=== PATIENT | female | born 1950 | race Caucasian/White ===

== ENCOUNTER 2017-10-04 11:48 | Inpatient (IN) | payer MEDICARE, OTHER ==
[~2017-10-04] VITALS: Ht 157.5 cm; Wt 106.2 kg
--- OUTSIDE RECORDS SUMMARY | 2017-10-04 11:50 | XMS REPORT | Clinical Summary ---
Author Author JENI [facility] Address Unknown Phone Unavailable Care Team Providers Care Telephone Mechanic Name Role Phone PCP Unavailable Allergies Active Allergy Reactions Severity Noted Date Comments Clindamycin Other (See Comments) 01/14/2014 Boss esophagus Latex Hives 10/15/2015 Current Medications Prescription Sig. Disp. Refills Start End Date Status Date glimepiride (AMARYL) 2 MG Take 1 mg by mouth daily Active tablet as needed . latanoprost (XALATAN) 1 drop nightly. Active 0.005 % ophthalmic solution fluticasone (FLONASE) 50 1 spray by Nasal route Active mcg/actuation nasal spray daily. omeprazole (PRILOSEC) 10 Take 20 mg by mouth daily Active MG capsule . allopurinol (ZYLOPRIM) Take 100 mg by mouth Active 100 MG tablet daily. bisacodyl (DULCOLAX) 5 mg Take 5 mg by mouth daily Active EC tablet as needed for Constipation. calcitriol (ROCALTROL) Take 0.25 mcg by mouth Active 0.5 MCG capsule daily . docusate sodium (COLACE) Take 300 mg by mouth Active 100 MG capsule every night as needed . guaiFENesin (MUCINEX) 600 Take 600 mg by mouth as Active mg 12 hr tablet needed . sucroferric oxyhydroxide Take by mouth 3 (three) Active 500 mg Chew times daily. cetirizine (ZYRTEC) 10 MG Take 10 mg by mouth Active tablet daily. cinacalcet (SENSIPAR) 30 Take 30 mg by mouth Active MG tablet daily. carvedilol (COREG) 25 MG Take 25 mg by mouth 2 11/23/19 Discontin tablet (two) times daily with 17 ued breakfast and dinner. sodium bicarbonate 325 MG Take 1,300 mg by mouth 2 11/23/19 Discontin tablet (two) times daily . 17 ued isosorbide mononitrate Take 1 tablet (60 mg 60 tablet 0 05/29/20 Discontin (IMDUR) 60 MG 24 hr total) by mouth 2 (two) 13 17 ued tablet times daily. loratadine (CLARITIN) 5 Take 5 mg by mouth daily. 11/23/19 Discontin mg chewable tablet 17 ued aspirin 81 MG EC tablet Take 1 tablet (81 mg 60 tablet 0 06/11/20 Discontin total) by mouth daily. 14 17 ued darbepoetin Inject 200 mcg 11/23/19 Discontin linh-polysorbate subcutaneously once. 17 ued (ARANESP) 200 mcg/0.4 mL Syrg injection senna (SENOKOT) 8.6 mg Take 3 tablets by mouth 11/23/19 Discontin tablet daily as needed . 17 ued desloratadine (CLARINEX) Take 5 mg by mouth daily 11/23/19 Discontin 5 mg tablet as needed. 17 ued CALCIUM CARB & Take 2,000 Units by mouth 11/23/19 Discontin CITRATE/VIT D3 (CALCIUM daily. 17 ued CARB AND CITRATE-VITD3 ORAL) NIFEdipine (ADALAT CC) 60 Take 1 tablet (60 mg 30 tablet 10/22/19 10/22/19 MG 24 hr tablet total) by mouth nightly. 16 17 NIFEdipine (ADALAT CC) 90 Take 1 tablet (90 mg 30 tablet 10/22/19 10/22/19 MG 24 hr tablet total) by mouth daily. 16 17 hydrALAZINE (APRESOLINE) Take 1 tablet (50 mg 90 tablet 10/22/19 10/22/19 50 MG tablet total) by mouth every 8 16 17 (eight) hours. losartan (COZAAR) 25 MG Take 1 tablet (25 mg 0 10/22/19 10/22/19 tablet total) by mouth 2 (two) 16 17 times daily. guanFACINE (TENEX) 1 MG Take 3 tablets (3 mg 90 tablet 11 04/21/20 04/21/20 tablet total) by mouth nightly. 16 17 bumetanide (BUMEX) 2 MG Take 1 tablet (2 mg 90 tablet 10/22/19 tablet total) by mouth every 8 16 17 (eight) hours. Active Problems Patient Care Coordination Note Dr. Christopher, PCP, Equinunkkostas Avilez, Ophath , Podiatry Dr. Messer, Derm Problem Noted Date Pre-transplant evaluation for kidney transplant 11/22/2016 Last Assessment & Plan: She is not an acceptable candidate for kidney transplant at this time. She was encouraged to monitor her intake and to exercise as tolerated. SOB (shortness of breath) 10/15/2015 Diabetes mellitus (HCC) 07/22/2014 Last Assessment & Plan: Continue follow up with primary care for blood glucose management. Obesity 07/22/2014 Last Assessment & Plan: She is s/p two gastric sleeve operations. She has gained weight since her previous clinic visit. Her current BMI is 45 with a goal weight of 233 lb and current weight of 175 lb. She was instructed to monitor her intake and to exercise as tolerated. Pulmonary edema 06/08/2014 ESRD (end stage renal disease) (HCC) 12/25/2013 Last Assessment & Plan: On PD since January 2016, makes about 50cc/24 hrs ESRD 2/2 HTN and DM Hyponatremia 05/23/2013 HTN (hypertension) 05/23/2013 Last Assessment & Plan: Blood pressure management per nephrology. 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);Pre-transplant evaluation for kidney transplant 07/17/2017 Evaluation Mabel Mahmood MD 07/17/2017 Telephone Transplant Phuong Chapa RN Kidney Transplant Pre-evaluation 06/21/2017 Telephone Transplant Amber Morgan Appointment 03/22/2017 Telephone Transplant Phuong Chapa RN 03/15/2017 Telephone Transplant Phuong Chapa RN Kidney Transplant Pre-evaluation 11/24/2016 Documentation Transplant Phuong Chapa RN 11/24/2016 Orders Only Transplant Phuong Chapa RN Pre-transplant evaluation for chronic kidney disease (Primary Dx) 11/22/2016 Office Visit Transplant Edel Moss MD 11/22/2016 Office Visit Transplant Edel Moss, ESRD (end stage renal MD disease) ([facility]) (Primary Peterson Chan Aba, Dx);Essential MD hypertension;Type 2 diabetes mellitus with complication, with long-term current use of insulin ([facility]);Pre-transplant evaluation for kidney transplant after 10/03/2016 Family History Medical History Relation Name Comments Diabetes Father Kidney disease Father On hemo initially and at was on PD. Bipolar disorder Mother Diabetes Mother Unremarkable Sister Unremarkable Son Unremarkable Son Relation Name Status Comments Father Mother Sister Alive Son Alive Son Alive Social History Tobacco Use Types Packs/Day Years Used Date Never Smoker Smokeless Tobacco: Never Used Alcohol Use Drinks/Week oz/Week Comments No Sex Assigned at Date Recorded Not on file Last Filed Vital Signs Vital Sign Reading Time Taken Blood Pressure 181/68 10/03/2017 10:38 AM CDT Pulse 66 10/03/2017 10:38 AM CDT Temperature 36 C (96.8 F) 10/03/2017 10:38 AM CDT Respiratory Rate 18 10/03/2017 10:38 AM CDT Oxygen Saturation 99% 07/17/2017 10:00 AM SENIOR BRANCH MANAGER Inhaled Oxygen - - Concentration Weight 105.8 kg (233 lb 4.8 oz) 10/03/2017 10:38 AM CDT Height 153 cm (5' 0.24") 10/03/2017 10:38 AM CDT Body Mass Index 45.21 10/03/2017 10:38 AM CDT Plan of Treatment Health Maintenance Due Date Last Done Comments INFLUENZA VACCINE 04/02/2018 Results Not on fileafter 10/03/2016
--- OUTSIDE RECORDS SUMMARY | 2017-10-04 11:50 | XMS REPORT | Clinical Summary ---
Author Author [facility] Organization [facility] Address Unknown Phone Unavailable Care Team Providers Care Strapper And Buffer Name Role Phone Adelina Christopher MD PCP Allergies Active Allergy Reactions Severity Noted Date Comments Clindamycin Other (See Comments) 12/31/2015 Boss esophagus Latex Hives 12/31/2015 Current Medications Prescription Sig. Disp. Refills Start End Date Status Date allopurinol (ZYLOPRIM) Take 100 mg by mouth Active 100 MG tablet daily. darbepoetin Inject 200 mcg under the Active linh-polysorbate skin once. (ARANESP, IN POLYSORBATE,) 200 mcg/0.4 mL syringe b complex vitamins (B Take 1 tablet by mouth Active COMPLETE) tablet daily. bisacodyl 5 mg tablet Take by mouth. Active BUMETanide (BUMEX) 2 MG Take 2 mg by mouth daily. Active tablet calcitriol (ROCALTROL) Take 0.5 mcg by mouth Active 0.5 MCG capsule daily. carvedilol (COREG) 25 MG Take 25 mg by mouth 2 Active tablet (two) times a day with meals. docusate sodium (COLACE) Take 100 mg by mouth 2 Active 100 MG capsule (two) times a day. fluticasone (FLONASE 1 spray into each nostril Active ALLERGY RELIEF) 50 daily. mcg/actuation nasal spray glimepiride (AMARYL) 1 MG Take 1 mg by mouth daily Active tablet before breakfast. hydrALAZINE (APRESOLINE) Take 50 mg by mouth 3 Active 50 MG tablet (three) times a day. isosorbide mononitrate Take 60 mg by mouth Active (IMDUR) 60 MG 24 hr daily. tablet losartan (COZAAR) 25 MG Take 25 mg by mouth Active tablet daily. NIFEdipine XL (NIFEDICAL Take 60 mg by mouth Active XL) 60 MG 24 hr tablet daily. pm NIFEdipine XL (PROCARDIA Take 90 mg by mouth Active XL) 90 MG 24 hr tablet daily. am senna (SENNA LAXATIVE) Take 1 tablet by mouth Active 8.6 mg tablet daily. simvastatin (ZOCOR) 10 MG Take 10 mg by mouth Active tablet nightly. sodium bicarbonate 648 MG Take 650 mg by mouth 4 Active tablet (four) times a day. guanFACINE (TENEX) 1 MG Take 1 mg by mouth Active tablet nightly. sucroferric oxyhydroxide Chew 1 tablet 3 (three) Active (VELPHORO) 500 mg times a day with meals. tablet,chewable cholecalciferol, vitamin Take 1,000 Units by mouth Active D3, (VITAMIN D3) 1,000 daily. unit capsule latanoprost (XALATAN) 1 drop nightly. Active 0.005 % ophthalmic solution cetirizine (ZyrTEC) 10 MG Take 10 mg by mouth Active tablet daily. Active Problems Not on file Encounters Date Type Specialty Care Team Description 12/30/2016 [facility] Radiology Jarek Christopher Jr., Visit for screening Encounter mammogram 12/30/2016 [facility] Access Jarek Christopher Jr., Visit for screening Orders mammogram (Primary Dx) after 10/03/2016 Social History Tobacco Use Types Packs/Day Years Used Date Never Smoker Smokeless Tobacco: Never Used Alcohol Use Drinks/Week oz/Week Comments No Sex Assigned at Date Recorded Not on file Last Filed Vital Signs Not on file Plan of Treatment Health Maintenance Due Date Last Done Comments COLONOSCOPY 1999 ZOSTER VACCINE 2009 PNEUMOCOCCAL 2014 POLYSACCHARIDE VACCINE AGE 65 AND OVER PNEUMOCOCCAL-13 2014 INFLUENZA VACCINE 01/31/2018 MAMMOGRAM 12/30/2018 12/30/2016, 12/22/2015, 12/08/2014, Additional history exists Implants Implanted Type Area Welder Plasma Arc Device Expiration Model / Identifier Date Serial / Lot Peritoneal Dialysis Catheter Catheter, Right: COVIDIEN 08/26/2020 [id number] Implanted: Qty: 1 on 12/31/2015 by Dialysis Abdomen, / Sidney Wasserman MD Middle / Quadrant/N [id number] on Specific Results * Mammo Breast Screen Tomosynthesis Bilateral (12/30/2016 1:20 PM) Specimen Performing Laboratory [facility] [id number] [place] [address] Narrative PROCEDURE: MAMMO BREAST SCREEN TOMOSYNTHESIS BILATERAL Computer-assisted detection was utilized inthe interpretation of this exam. COMPARISON: 2015, 2014, 2013, and 2012 TECHNIQUE: Bilateral digital screening mammogram was performed and interpreted using computer-assisted detection. HISTORY: Asymptomatic routine screening. Family History: Mother with breast cancer diagnosis at age 65. FINDINGS: BreastComposition: There are scattered areas of fibroglandular density ( category B). No suspicious mass , architectural distortion or suspicious microcalcifications are present. There has been no significant interval change since prior mammograms. IMPRESSION: No mammographic evidence of malignancy. Birads category 1.Negative. RECOMMENDATIONS:If the clinical breast examination is unchanged and normal , annual screening mammography is recommended per ACS and ACR guidelines. NOTE: This facility is a designated ACR [facility] ( [facility]) , meeting standards of accreditation in all modalities of breast imaging. This facility is accredited by The [employer] for Mammography. A negative x-ray report should not delay biopsy if a dominant or clinically suspicious mass is present. Not all cancers are identified by x-ray. [id number] after 10/03/2016 Insurance Payer Benefit Subscriber ID Type Phone Address Plan / Group MEDICARE MEDICARE xxxxxxxxxx Medicare [place], [place] PART A AND B AETNA AETNA xxxxxxxxxx HMO HMO,POS,EP O, MC/EC xxxxxxxxx
[2017-10-04] MEDS ORDERED: SODIUM CHLORIDE 0.9% 1000ML 1,000 ML IV STA (12:25)
[2017-10-04] MEDS ORDERED: ASPIRIN 81 MG CHEW TAB PO ONE ×2 (12:30→14:15)
[2017-10-04] MEDS ORDERED: SODIUM CHLORIDE 0.9% 1000ML 1,000 ML ONE (12:34)
[2017-10-04 12:37] LABS: BASOPHILS # (AUTO) 0.1 (0.0-0.1); BASOPHILS % 0.7 % (0.0-1.0); EOSINOPHILS # (AUTO) 0.3 (0.0-0.4); HEMATOCRIT 34.2 % (34.2-44.1); HEMOGLOBIN 10.8 g/dL (12.0-16.0); LYMPHOCYTES # (AUTO) 3.1 (1.0-3.2); MEAN CORPUSCULAR HEMOGLOBIN 30.6 pg (28-32); MEAN CORPUSCULAR HGB CONC 31.6 g/dL (31-35); MEAN CORPUSCULAR VOLUME 96.9 fL (81-99); MONOCYTES # (AUTO) 0.7 (0.2-0.8); MONOCYTES % 7.1 % (4.4-11.3); NEUTROPHILS # (AUTO) 5.7 (2.1-6.9); NEUTROPHILS % 57.9 % (38.7-80.0); PLATELET COUNT 251 x10e3/uL (140-360); RED BLOOD COUNT 3.53 x10e6/uL (3.6-5.1); RED CELL DISTRIBUTION WIDTH 13.7 % (11.7-14.4)
[2017-10-04] MEDS ORDERED: CALCITRIOL0.25 MCG PO (12:40)
[2017-10-04] MEDS ORDERED: SIMVASTATIN20 MG PO (12:40)
[2017-10-04] MEDS ORDERED: CETIRIZINE HCL10 MG PO (12:40)
[2017-10-04] MEDS ORDERED: LORATADINE10 MG PO (12:40)
[2017-10-04] MEDS ORDERED: BISACODYL5 MG PO (12:40)
[2017-10-04] MEDS ORDERED: LOSARTAN POTASS25 MG PO (12:40)
[2017-10-04] MEDS ORDERED: MUCINEX600 MG PO (12:40)
[2017-10-04] MEDS ORDERED: POTASSIUM CHLO20 ME1 PO (12:40)
[2017-10-04] MEDS ORDERED: VITAMIN D1000 UNI1 PO (12:40)
[2017-10-04] MEDS ORDERED: ALLOPURINOL100 MG PO (12:40)
[2017-10-04] MEDS ORDERED: OMEPRAZOLE40 MG PO (12:40)
[2017-10-04] MEDS ORDERED: SENSIPAR30 MG PO (12:40)
[2017-10-04] MEDS ORDERED: CALCIUM CARBON500 MG PO (12:40)
[2017-10-04] MEDS ORDERED: SIMETHICONE80 MG PEG (12:40)
[2017-10-04 12:44] LABS: INR 1.1; PARTIAL THROMBOPLASTIN TIME 28.8 seconds (23.8-35.5); PROTHROMBIN TIME 13.4 seconds (11.9-14.5)
--- NOTE | 2017-10-04 12:48 | Diagnostic Imaging Report ---
PROCEDURE:CHEST SINGLE (PORTABLE) TECHNIQUE:Portable AP chest INDICATION:Exhaustion COMPARISON:None. FINDINGS: Lungs are clear and well-inflated. No pleural effusions. Normal heart size, mediastinal contour, and pulmonary vasculature for technique. Intact skeleton. Right humerus ligamentous anchors. CONCLUSION: No acute abnormality. Dictated by: Greg Ramos M.D. on 10/04/2017 at 12:49 Electronically approved by: Greg Ramos M.D. on 10/04/2017 at 12:49
[2017-10-04] MEDS ORDERED: AMIODARONE HCL 100 ML IV ONE ×3 (12:50→13:09)
[2017-10-04 12:55] LABS: ALBUMIN 3.1 g/dL (3.5-5.0); ALBUMIN/GLOBULIN RATIO 0.9 (0.8-2.0); ANION GAP 15.9 mmol/L (8-16); CREATININE, SERUM 8.5 mg/dL (0.57-1.11); POTASSIUM 4.9 mmol/L (3.5-5.1)
[2017-10-04] MEDS ORDERED: AMIODARONE 900MG 500 ML IV ONE (12:56)
[2017-10-04] MEDS ORDERED: AMIODARONE HCL 150 MG/100 ML BAG IV ONE ×2 (13:00)
[2017-10-04] MEDS ORDERED: AMIODARONE HCL 150MG 200 ML IV ONE (13:00)
[2017-10-04] MEDS ORDERED: AMIODARONE HCL 900 MG in DEXTROSE 5% 500ML 500 ML IV ONE (13:00)
[2017-10-04 13:04] LABS: CREATINE KINASE MB 1.5 ng/mL (0-5.0)
[2017-10-04 13:05] LABS: MAGNESIUM 1.6 MG/DL (1.3-2.1); PHOSPHORUS 3.9 MG/DL (2.3-4.7)
[2017-10-04] MEDS ORDERED: AMIODARONE HCL 150MG 100 ML IV ONE (13:15)
[2017-10-04 13:27] LABS: THYROID STIMULATING HORMONE 4.367 uIU/mL (0.350-4.940)
[2017-10-04] MEDS ORDERED: SODIUM CHLORIDE FLUSH 10 ML SYR INJ PRN (14:15)
--- OUTSIDE RECORDS SUMMARY | 2017-10-04 15:36 | XMS REPORT | Clinical Summary ---
Author Author [facility] Organization [facility] Address Unknown Phone Unavailable Care Team Providers Care Metal Door Assembler Name Role Phone Adelina Christopher MD PCP [...] Date Type Specialty Care Team Description 12/30/2016 [facility] Radiology Jarek Christopher Jr., Visit for screening [...] Additional history exists Implants Implanted Type Area Spiritual Counselor Device Expiration Model / Identifier Date Serial / Lot Peritoneal Dialysis Catheter Catheter, Right: COVIDIEN 08/26/2020 [id number] Implanted: Qty: 1 on 12/31/2015 by Dialysis Abdomen, / Sidney Wasserman MD Middle / Quadrant/N [id number] on Specific Results * Mammo Breast Screen Tomosynthesis Bilateral (12/30/2016 1:20 PM) Specimen Performing Laboratory [facility] [address] [place] [address] Narrative PROCEDURE: MAMMO BREAST SCREEN TOMOSYNTHESIS BILATERAL [...] imaging. This facility is accredited by The [employer] for Mammography. A negative x-ray report should not delay biopsy if a dominant or clinically suspicious mass is present. Not all cancers are identified by x-ray. [id number] after 10/03/2016 Insurance Payer Benefit Subscriber ID Type Phone Address Plan / Group MEDICARE MEDICARE xxxxxxxxxx Medicare [place], [place] PART A AND B AETNA AETNA xxxxxxxxxx HMO HMO,POS,EP O, MC/EC xxxxxxxxx
--- OUTSIDE RECORDS SUMMARY | 2017-10-04 15:37 | XMS REPORT ---
Author Author [facility] Address Unknown Phone Unavailable Care Team Providers Care Open Source Developer Name Role Phone EMILIA GOODSON Unavailable Unavailable Problems This patient has no known problems. Allergies, Adverse Reactions, Alerts This patient has no known allergies or adverse reactions. Medications This patient has no known medications. Results Test Description Test Time Test Comments Text Results Atomic Results Result Comments CHEST SINGLE (PORTABLE) [place] [address] Patient Name: KIMBERLI ARCHIBALD MR #: [id number] : 1950 Age/Sex: 67/F Req #: [id number] Adm Physician: Ordered by: EMILIA GOODSON MD Report #: [id number] Location: ER Room/Bed: Procedure: [id number] DX/CHEST SINGLE (PORTABLE) Exam Date: 10/04/17 Exam Time: 1230 REPORT STATUS: Signed PROCEDURE: CHEST SINGLE (PORTABLE) TECHNIQUE: Portable AP chest INDICATION: Exhaustion COMPARISON: None. FINDINGS: Lungs are clear and well- inflated. No pleural effusions. Normal heart size, mediastinal contour, and pulmonary vasculature for technique. Intact skeleton. Right humerus ligamentous anchors. CONCLUSION: No acute abnormality. Dictated by: Maynor Ramos M.D. on 10/04/2017 at 12:49 Electronically approved by: Maynor Ramos M.D. on 10/04/2017 at 12:49 Dictated By: MAYNOR RAMOS MD 1249 Transcribed By: SALLIE on 10/04/17 1249 COPY TO: EMILIA GOODSON MD
--- OUTSIDE RECORDS SUMMARY | 2017-10-04 15:37 | XMS REPORT | Clinical Summary ---
Author Author JENI [facility] Address Unknown Phone Unavailable Care Team Providers Care Farm Crops Teacher Name Role Phone PCP Unavailable Allergies Active [...] Patient Care Coordination Note Dr. Christopher, PCP, Schuylerkostas Avilez, Ophath , Podiatry Dr. 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);Pre-transplant evaluation for kidney transplant [...] Moss, ESRD (end stage renal MD disease) ([facility]) (Primary Peterson Chan Aba, Dx);Essential MD hypertension;Type 2 diabetes mellitus with complication, with long-term current use of insulin ([facility]);Pre-transplant evaluation for kidney transplant after 10/03/2016 Family [...] CDT Oxygen Saturation 99% 07/17/2017 10:00 AM SLEEP MANAGER Inhaled Oxygen - - Concentration Weight 105.8 kg (233 lb 4.8 oz) 10/03/2017 10:38 AM CDT Height 153 cm (5' 0.24") 10/03/2017 10:38 AM CDT Body Mass Index 45.21 10/03/2017 10:38 AM CDT Plan of Treatment Health Maintenance Due Date Last Done Comments INFLUENZA VACCINE 04/02/2018 Results Not on fileafter 10/03/2016
[2017-10-04 16:35] LABS: CLARITY,URINE CLEAR (CLEAR); COLOR,URINE YELLOW (YELLOW); LEUKOCYTE ESTERASE ,URINE 1+ (NEGATIVE); NITRITE,URINE NEGATIVE (NEGATIVE); PROTEIN,URINE DIPSTICK 2+ (NEGATIVE)
[2017-10-04 16:36] LABS: BILIRUBIN,URINE NEGATIVE (NEGATIVE); KETONES,URINE NEGATIVE (NEGATIVE); URINE UROBILINOGEN 0.2 mg/dL (0.2 - 1)
[2017-10-04] MEDS ORDERED: METOPROLOL TARTRATE INJ 1 MG/ML VIAL IV NR (16:45)
[2017-10-04 16:48] LABS: BACTERIA,URINE FEW /HPF; EPITHELIAL CELLS,URINE MODERATE /LPF
[2017-10-04] MEDS ORDERED: APIXAB 2.5 MG TABLET PO SCH ×2 (17:00)
[2017-10-04] MEDS ORDERED: METOPROLOL TARTRATE 50 MG TAB PO STA (17:33)
[2017-10-04] MEDS: APIXABAN 5 MG TABLET PO SCH (17:55)
[2017-10-04] MEDS ORDERED: METOPROLOL TARTRATE 25 MG TAB PO SCH (18:00)
--- NOTE | 2017-10-04 19:35 | Consultation ---
DATE OF CONSULTATION: October 04, 2017 CARDIAC CONSULTATION Atrial fibrillation with fast ventricular response. HISTORY: This is a 67-year-old lady who is known with morbid obesity, diabetes mellitus of many years duration with severe end-organ damage and hypertension. She is noted to have long-standing history of renal insufficiency. She was started on peritoneal dialysis a year ago. She does her dialysis at home. Her activities are limited at her level of activity. She does have easy fatigability, shortness of breath on exertion. She does have frequent episodes where she cannot breathe well. For the last week or so, she is feeling weak. No energy. It was noted her heart rate is very fast and she is feeling dizzy and very ill. She came to the emergency room. She was in atrial fibrillation with rapid ventricular response. Patient was started on Cardizem intravenously. Her heart rate is 180. Cardiac consultation is obtained. I visited the patient who is still in atrial fibrillation on Cardizem drip. We gave her metoprolol orally. The patient apparently she was noted to be weak for 1 week. However, the documented fast heart was today on her blood pressure measurement where her heart rate was 170. She is feeling weak and "no energy". There is no chest pain. There is usual shortness of breath. There is usual "orthopnea". The patient does have sleep apnea on CPAP. There is no angina. There is easy fatigability. There is usual swelling of the lower extremities. There is no recent travel. There is no pleuritic chest pain. There is not any type of chest pain except shortness of breath. There is no cough. No hemoptysis. REVIEW OF SYSTEMS: Was extensive to all systems. Will be summarized for clarity. GENERAL: No fever. No chills. No weight loss. No weight gain. PULMONARY/CARDIAC: As per above. GI: Bloating and indigestion mainly after heavy meals. There is a history of severe chronic constipation. There is no hemiparesis. These is no melena. : She still makes some urine. MUSCULAR: Aches and pain in several joints. NEUROLOGICAL: No local deficits. Occasional tingling and numbness. No seizure activity. HEENT: Mild decreased vision. HEMATOLOGY: No bleeding or bruising. ENDOCRINE: The patient is diabetic of many years duration. SOCIAL HISTORY: She is a nonsmoker and non-alcohol drinker. She is . HOME MEDICATIONS 1. Allopurinol 100 mg a day. 2. Bisacodyl 10 mg a day. 3. Calcitriol 1 tablet a day. 4. Calcium carbonate. 5. Vitamins D3. 6. Sensipar. 7. Mucinex. 8. Sertraline. 9. Loratadine. 10. Losartan 25 mg a day. 11. Zocor 20 mEq a day. 12. Zocor 20 mg a day. 13. Prilosec 40 mg a day. ALLERGIES: NONE. PAST MEDICAL HISTORY 1. Sleep apnea. 2. Obesity. 3. Hypertension. 4. Diabetes mellitus with end-organ damage. 5. End-stage renal disease, on peritoneal dialysis. 6. times 2. 7. Appendectomy. 8. Weight loss surgery twice. 9. Shoulders surgery. 10. Insertion of peritoneal dialysis catheter. FAMILY HISTORY: Father at age 70. He was on hemodialysis. He was diabetic and he of a myocardial infarction. Mother at age of 77. She was hypertensive. One healthy sister and 2 healthy sons at age 42 and 41. PHYSICAL EXAMINATION GENERAL: Obese lady. VITALS: Height of 5 feet 3 inches, weight of 160 pounds, blood pressure 130/80, heart rate of 140 irregularly irregular with atrial fibrillation, respiratory rate of 18, temperature of 98 Fahrenheit. HEENT: Pupils are reactive. NECK: Short neck. Difficult to assess jugular venous pulsation. CHEST: Bilateral crackles and rales with decreased lung expansion. HEART: PMI deep and not palpable. There is an irregularly irregular rate of atrial fibrillation. There is tachycardia with ejection systolic murmur. ABDOMEN: Obese. PD dialysis catheter in place. EXTREMITIES: Mild peripheral edema. Decreased feet pulses. NEUROLOGIC: Able to move her extremities. LAB DATA: White blood cell count 9.8, hemoglobin of 10.8, hematocrit 34%, and platelet count of 251,000. Sodium 141, potassium of 4.9, BUN of 55, creatinine 8.5, glucose of 155. BNP of only 195. TSH of 4.4. Cardiac enzymes and troponin are normal. IMPRESSION AND PLAN 1. New onset atrial fibrillation with rapid ventricular response. 2. Diabetes mellitus with end-organ damage. 3. End-stage renal disease, on peritoneal dialysis. 4. Sleep apnea, on CPAP. 5. Obesity. 6. Hyperlipidemia. 7. Hypercholesterolemia. 8. History of gout. 9. Allergies and hay fever. 10. Obesity. 11. Very high probability of coronary artery disease. Cardiac berumen, my recommendation is to continue amiodarone. Will add beta migel. Patient already started on Eliquis for anticoagulation. Will follow the patient's progression with you. Will adjust medication as needed. Atrial fibrillation cause and treatment is discussed and explained to the patient and her . Their questions were answered. Care discussed with the staff and the patient's attending in the emergency room to try to manage her problems. Will follow the patient's progression with you. I would like to thank you for your kind referral. Job#: [id number] RENEE
[2017-10-04 20:39] VITALS: BP 131/50
[2017-10-04] MEDS ORDERED: AMARYL1 MG PO (20:56)
[2017-10-04 21:00] VITALS: BP 131/50
[2017-10-04 21:15] LABS: CREATINE KINASE MB 1.6 ng/mL (0-5.0)
[2017-10-04] MEDS: GUAIFENESIN 600 MG TAB PO SCH (22:00)
[2017-10-04] MEDS ORDERED: GLIMEPIRIDE 2 MG TAB PO PRN (22:00)
[2017-10-04] MEDS: POTASSIUM CHLORIDE 20 MEQ TAB CR PO SCH (23:10)
[2017-10-04] MEDS: OYST-CAL-D 500MG TABLET PO SCH (23:11)
[2017-10-04] MEDS: SIMVASTATIN 20 MG TAB PO SCH (23:11)
[2017-10-05] VITALS: BP 139/46
[2017-10-05 04:00] VITALS: BP 143/51
[2017-10-05 06:13] LABS: BASOPHILS # (AUTO) 0.1 (0.0-0.1); BASOPHILS % 0.6 % (0.0-1.0); EOSINOPHILS # (AUTO) 0.3 (0.0-0.4); EOSINOPHILS % 4.2 % (0.0-6.0); HEMATOCRIT 32.5 % (34.2-44.1); HEMOGLOBIN 10.3 g/dL (12.0-16.0); LYMPHOCYTES # (AUTO) 2.6 (1.0-3.2); LYMPHOCYTES % 32.5 % (18.0-39.1); MEAN CORPUSCULAR HEMOGLOBIN 31.1 pg (28-32); MEAN CORPUSCULAR HGB CONC 31.7 g/dL (31-35); MEAN CORPUSCULAR VOLUME 98.2 fL (81-99); MONOCYTES # (AUTO) 0.8 (0.2-0.8); MONOCYTES % 9.6 % (4.4-11.3); NEUTROPHILS # (AUTO) 4.3 (2.1-6.9); NEUTROPHILS % 52.7 % (38.7-80.0); PLATELET COUNT 232 x10e3/uL (140-360); RED BLOOD COUNT 3.31 x10e6/uL (3.6-5.1); RED CELL DISTRIBUTION WIDTH 13.3 % (11.7-14.4)
[2017-10-05 06:45] LABS: CREATINE KINASE MB 1.5 ng/mL (0-5.0)
[2017-10-05 07:04] LABS: ALBUMIN 2.7 g/dL (3.5-5.0); ALBUMIN/GLOBULIN RATIO 0.8 (0.8-2.0); ANION GAP 14.8 mmol/L (8-16); CALCIUM 8.9 mg/dL (8.4-10.2); CREATININE, SERUM 8.31 mg/dL (0.57-1.11); POTASSIUM 4.8 mmol/L (3.5-5.1)
[2017-10-05 07:39] LABS: CHOL/HDL RATIO 2.9 (3.0-3.6)
[2017-10-05 07:45] VITALS: BP 148/66
[2017-10-05] MEDS ORDERED: SIMETHICONE 80 MG CHEW PEG SCH (09:00)
[2017-10-05] MEDS ORDERED: NON-FORMULARY MEDICATION (Cetirizine Hcl 10 MG) PO SCH (09:00)
[2017-10-05] MEDS ORDERED: BISACODYL 5 MG TAB EC PO SCH (09:00)
[2017-10-05] MEDS ORDERED: METOPROLOL TARTRATE 25 MG TAB PO SCH (09:00)
[2017-10-05] MEDS: LORATADINE 10 MG TAB PO SCH (09:55)
[2017-10-05] MEDS: CALCITRIOL 0.25 MCG CAP PO SCH (09:55)
[2017-10-05] MEDS: APIXABAN 5 MG TABLET PO SCH (09:55)
[2017-10-05] MEDS: PANTOPRAZOLE SOD 40 MG TABEC PO SCH (09:55)
[2017-10-05] MEDS: CHOLECALCIFEROL 1,000 UNIT TAB PO SCH (09:56)
[2017-10-05] MEDS: GUAIFENESIN 600 MG TAB PO SCH ×2 (09:56→21:28)
[2017-10-05] MEDS: OYST-CAL-D 500MG TABLET PO SCH ×2 (09:56→21:28)
[2017-10-05] MEDS: ALLOPURINOL 100 MG TAB PO SCH (09:56)
[2017-10-05] MEDS: CINACALCET 30 MG TAB PO SCH (09:56)
[2017-10-05] MEDS: POTASSIUM CHLORIDE 20 MEQ TAB CR PO SCH (09:57)
[2017-10-05] MEDS ORDERED: VELPHORO PO (10:13)
[2017-10-05] MEDS ORDERED: XALATAN2.5 ML OU (10:13)
[2017-10-05] MEDS ORDERED: GENTAMICIN40 MG/1 ML IV (10:13)
[2017-10-05] MEDS ORDERED: FLONASE (10:18)
[2017-10-05] MEDS: AMIODARONE HCL 200 MG TAB PO SCH ×2 (11:55→17:23)
[2017-10-05 12:00] VITALS: BP 137/45
[2017-10-05] MEDS ORDERED: GENTAMICIN SULFATE 40 MG/ML 2 ML VIAL IV PRN (12:15)
[2017-10-05] MEDS ORDERED: GENTAMICIN OINTMENT TOP PRN (12:30)
[2017-10-05] MEDS: VELPHORO 500 MG PO SCH ×2 (12:45→17:00)
--- NOTE | 2017-10-05 15:39 | Consultation ---
DATE OF CONSULTATION: October 05, 2017 RENAL CONSULTATION HISTORY OF PRESENT ILLNESS: A 67-year-old female well known to our nephrology service. Has underlying history of hypertension, hyperlipidemia, secondary hyperparathyroidism, anemia of chronic kidney disease, history of gout, follows with Dr. Jennings, renal specialist. She is on peritoneal dialysis for the last 2 years. Came in with irregular heartbeat. EP doctor consulted for possible pacemaker. Currently asymptomatic. Had a bowel movement. Denies abdominal pain, nausea, vomiting, headache or shortness of breath. ALLERGIES: TO CLINDAMYCIN. CURRENT MEDICATIONS: Include Zocor, simethicone. She is on K-Dur 20 mEq daily. Metoprolol 25 mg p.o. b.i.d., losartan 25 mg at bedtime. She is on Xalatan, Cinacalcet 30 mg p.o. daily, cholecalciferol, vitamin D3 1000 units p.o. daily. Os-Marty D 500 mg p.o. t.i.d., allopurinol 100 mg p.o. daily, amiodarone 200 mg p.o. b.i.d. SOCIAL HISTORY: Does not smoke or drink. FAMILY HISTORY: Significant for hypertension. CURRENT LABS: Show white count 8, hemoglobin 10.3. Chemistry: Potassium 4.8. Bicarbonate 24. Creatinine 8.3. BNP 195. PHYSICAL EXAMINATION: GENERAL: Awake, alert, lying supine. No apparent distress. VITALS: Blood pressure 137/45, pulse rate 50, afebrile, irregularly irregular rhythm, respiratory rate 17. HEAD AND NECK: Cornea clear. Oral mucosa dry. LUNGS: Relatively clear. HEART: S1/S2 audible. ABDOMEN: Otherwise soft, nontender. LOWER EXTREMITY EXAMINATION: Shows no edema. PD catheter exit site satisfactory condition. IMPRESSION AND PLAN: End-stage renal disease on peritoneal dialysis. She got PD last night. Will carry out her prescription today. Please see orders. Job#: [id number] EV
[2017-10-05 16:20] VITALS: BP 105/70
[2017-10-05] MEDS: BISACODYL 5 MG TAB EC PO SCH (21:00)
[2017-10-05] MEDS: LATANOPROST(OPTH) 2.5 ML BTL OU SCH (21:21)
[2017-10-05] MEDS: LOSARTAN POTASSIUM 25 MG TAB PO SCH (21:28)
[2017-10-05] MEDS: SIMVASTATIN 20 MG TAB PO SCH (21:28)
[2017-10-05] MEDS ORDERED: INSULIN DETEMIR 100 UNIT/ML PEN SQ ONE (23:19)
--- NOTE | 2017-10-05 23:50 | Consultation ---
DATE OF CONSULTATION: October 05, 2017 REASON FOR CONSULT: Sick sinus syndrome. HISTORY OF PRESENT ILLNESS: This is a 67-year-old woman with history of hypertension, history of diabetes, obesity, who has end-stage renal disease, on peritoneal dialysis and has had paroxysmal atrial fibrillation with rapid ventricular response. She was admitted with progressive shortness of breath. She was found to have atrial fibrillation with rapid ventricular response, heart rate in the 140 to 150, was started on Cardizem and amiodarone. She converted to sinus. However, she became very bradycardic with heart rate in the 40s, so medicines were stopped and since then she has been having episodes of rapid ventricular response, tachycardia 130-140, and few minutes later the heart rate goes down to 40 and 50. Patient feels very dizzy and short of breath. Also, she feels palpitations, feeling the heart racing. It seems at this time there are no reversible causes. These episodes of tachycardia persist despite holding the medicines. No history of syncope. No chest pain. REVIEW OF SYSTEMS: CONSTITUTIONAL: Negative. CARDIOVASCULAR: As per HPI. RESPIRATORY: Negative. GASTROINTESTINAL: Negative. GENITOURINARY: Negative. MUSCULOSKELETAL: Negative. EYES: Negative. ENT: Negative. ALLERGY/IMMUNOLOGY: Negative. PSYCHIATRIC: Negative. PAST MEDICAL HISTORY: Hypertension; end-stage renal disease, on peritoneal dialysis. PAST SURGICAL HISTORY: Peritoneal dialysis catheter. FAMILY HISTORY: No premature coronary artery disease. SOCIAL HISTORY: No smoking, alcohol, or illicit drugs. PHYSICAL EXAMINATION: VITAL SIGNS: Blood pressure 100/60, pulse 45, respiration 20, O2 sat is 98%. GENERAL: In no acute distress. HEENT: Moist mucous membranes. CARDIOVASCULAR: Irregular. RESPIRATORY: Clear. ABDOMEN: Soft, nontender. MUSCULOSKELETAL: 2+ distal pulses. NEUROLOGICAL: No focal deficit. SKIN: No lesions. PSYCHIATRY: Normal thought process. EKG: Sinus bradycardia, episodes of atrial fibrillation with rapid ventricular response. Echocardiogram, normal ejection fraction. IMPRESSION: 1. Sick sinus syndrome. Patient with tachybrady syndrome, having symptomatic tachycardia and bradycardia. No reversible causes. Has been refractory to medical therapy, unable to treat medically. 2. History of end-stage renal disease, on peritoneal dialysis. RECOMMENDATIONS: Discussed with the patient. She has a strong indication for a pacemaker. The procedure was explained in detail with benefits and risks. Patient voices understanding and wishes to proceed. Will plan for a dual-chamber pacemaker. Thank you for letting us participate in [facility]. Job#: [id number]
[2017-10-05] MEDS: SIMETHICONE 80 MG CHEW PEG SCH (23:53)
[2017-10-06] VITALS (7 sets, daily range): BP systolic 103–159; BP diastolic 59–89
[2017-10-06] MEDS: VELPHORO 500 MG PO SCH ×3 (07:32→17:23)
[2017-10-06] MEDS: LORATADINE 10 MG TAB PO SCH (07:32)
[2017-10-06 07:52] LABS: BASOPHILS # (AUTO) 0.1 (0.0-0.1); BASOPHILS % 0.5 % (0.0-1.0); EOSINOPHILS # (AUTO) 0.4 (0.0-0.4); EOSINOPHILS % 3.1 % (0.0-6.0); HEMATOCRIT 31.5 % (34.2-44.1); HEMOGLOBIN 9.9 g/dL (12.0-16.0); LYMPHOCYTES % 27.2 % (18.0-39.1); MEAN CORPUSCULAR HEMOGLOBIN 30.7 pg (28-32); MEAN CORPUSCULAR HGB CONC 31.4 g/dL (31-35); MEAN CORPUSCULAR VOLUME 97.8 fL (81-99); MONOCYTES % 8.9 % (4.4-11.3); NEUTROPHILS # (AUTO) 6.7 (2.1-6.9); NEUTROPHILS % 59.9 % (38.7-80.0); PLATELET COUNT 209 x10e3/uL (140-360); RED BLOOD COUNT 3.22 x10e6/uL (3.6-5.1); RED CELL DISTRIBUTION WIDTH 13.4 % (11.7-14.4)
[2017-10-06] MEDS ORDERED: SODIUM CHLORIDE 0.9% 500ML 500 ML ONE (07:53)
[2017-10-06] MEDS ORDERED: LIDOCAINE HCL 2% LOCAL 20 ML VIAL ONE ×2 (07:53→10:00)
[2017-10-06] MEDS ORDERED: BACITRACIN 50,000 UNIT VIAL ONE (07:53)
[2017-10-06] MEDS ORDERED: SODIUM CHLORIDE 0.9% 1000ML 2,000 ML ONE (07:54)
[2017-10-06] MEDS: ALLOPURINOL 100 MG TAB PO SCH (08:14)
[2017-10-06] MEDS: OYST-CAL-D 500MG TABLET PO SCH ×3 (08:14→20:36)
[2017-10-06] MEDS: CINACALCET 30 MG TAB PO SCH (08:14)
[2017-10-06] MEDS: CALCITRIOL 0.25 MCG CAP PO SCH (08:14)
[2017-10-06] MEDS: AMIODARONE HCL 200 MG TAB PO SCH ×2 (08:14→17:23)
[2017-10-06] MEDS: CHOLECALCIFEROL 1,000 UNIT TAB PO SCH (08:14)
[2017-10-06] MEDS: PANTOPRAZOLE SOD 40 MG TABEC PO SCH (08:14)
[2017-10-06 08:24] LABS: ALBUMIN 2.6 g/dL (3.5-5.0); ALBUMIN/GLOBULIN RATIO 0.7 (0.8-2.0); ANION GAP 13.4 mmol/L (8-16); CALCIUM 8.4 mg/dL (8.4-10.2); CREATININE, SERUM 8.19 mg/dL (0.57-1.11); POTASSIUM 4.4 mmol/L (3.5-5.1)
[2017-10-06] MEDS ORDERED: VANCOMYCIN 1GM/NS 250 ML 250 ML ONE (09:06)
[2017-10-06] MEDS ORDERED: MIDAZOLAM HCL 2 MG/2 ML VIAL ONE ×3 (09:46→10:20)
[2017-10-06] MEDS ORDERED: FENTANYL CITRATE/PF 100MCG/2 ML INJ ONE (09:47)
--- NOTE | 2017-10-06 11:35 | Diagnostic Imaging Report ---
PROCEDURE: A single AP view of the chest. COMPARISON: Patients [facility], DX, CHEST SINGLE (PORTABLE), 10/04/2017, 12:40. INDICATIONS: PACEMAKER PLACEMENT FINDINGS: Lines/tubes: Interval placement of right sided 2-lead cardiac device, with lead distal tips projecting in the right atrium, right ventricle. Lungs: The lungs are well inflated and grossly clear. There is no evidence of pneumonia or pulmonary edema. Pleura: There is no pleural effusion or pneumothorax. Heart and mediastinum: Stable cardiac silhouette. Central pulmonary vasculature is normal. Bones: No acute bony abnormality. IMPRESSION: 1. interval placement of right-sided 2-lead cardiac device with distal tips projecting in the right atrium and right ventricle. David Ahmadi M.D. Dictated by: David Ahmadi M.D. on 10/06/2017 at 11:35 Electronically approved by: David Ahmadi M.D. on 10/06/2017 at 11:35
[2017-10-06] MEDS: GUAIFENESIN 600 MG TAB PO SCH ×2 (12:19→22:04)
[2017-10-06] MEDS: METOPROLOL TARTRATE 25 MG TAB PO SCH (17:23)
[2017-10-06] MEDS: LATANOPROST(OPTH) 2.5 ML BTL OU SCH (20:35)
[2017-10-06] MEDS: SIMETHICONE 80 MG CHEW PEG SCH (20:35)
[2017-10-06] MEDS: BISACODYL 5 MG TAB EC PO SCH (20:36)
[2017-10-06] MEDS: SIMVASTATIN 20 MG TAB PO SCH (20:36)
[2017-10-06] MEDS: LOSARTAN POTASSIUM 25 MG TAB PO SCH (20:36)
[2017-10-06] MEDS ORDERED: INSULIN DETEMIR 100 UNIT/ML PEN SQ SCH (21:00)
[2017-10-07 00:16] VITALS: BP 117/56
[2017-10-07 04:39] VITALS: BP 143/53
[2017-10-07 08:00] VITALS: BP 117/55
[2017-10-07] MEDS: LORATADINE 10 MG TAB PO SCH (08:51)
[2017-10-07] MEDS: VELPHORO 500 MG PO SCH ×3 (08:51→17:00)
[2017-10-07] MEDS: CALCITRIOL 0.25 MCG CAP PO SCH (08:52)
[2017-10-07] MEDS: PANTOPRAZOLE SOD 40 MG TABEC PO SCH (08:52)
[2017-10-07] MEDS: OYST-CAL-D 500MG TABLET PO SCH ×3 (08:52→20:39)
[2017-10-07] MEDS: CHOLECALCIFEROL 1,000 UNIT TAB PO SCH (08:52)
[2017-10-07] MEDS: ALLOPURINOL 100 MG TAB PO SCH (08:52)
[2017-10-07] MEDS: AMIODARONE HCL 200 MG TAB PO SCH ×2 (08:52→18:00)
[2017-10-07] MEDS: METOPROLOL TARTRATE 25 MG TAB PO SCH ×2 (08:52→18:00)
[2017-10-07] MEDS: CINACALCET 30 MG TAB PO SCH (08:52)
[2017-10-07 09:13] VITALS: BP 117/55
[2017-10-07] MEDS: GUAIFENESIN 600 MG TAB PO SCH (09:14)
[2017-10-07 12:00] VITALS: BP 115/69
[2017-10-07 16:00] VITALS: BP 168/74
[2017-10-07] MEDS ORDERED: APIXAB 2.5 MG TABLET PO SCH (17:00)
--- NOTE | 2017-10-07 18:04 | Diagnostic Imaging Report ---
Exam: Abdominal film Clinical History: Evaluation of dialysis catheter Comparison: None. DISCUSSION: Nonobstructive bowel gas pattern. Peritoneal catheter extending across the abdomen with the distal tip left of midline. Additional radiopaque wire/catheter overlying the right iliac crest. IMPRESSION: 1. Nonobstructive bowel gas pattern. Signed by: Dr. Rogelio Celeste M.D. on 10/07/2017 6:00 PM
[2017-10-07] MEDS ORDERED: AMIODARONE HCL200 MG (20:03)
[2017-10-07] MEDS ORDERED: MINOCYCLINE HCL50 MG PO (20:07)
--- NOTE | 2017-10-07 20:08 | Operative Report ---
DATE OF PROCEDURE: October 06, 2017 PREPROCEDURE DIAGNOSES: Sick sinus syndrome, symptomatic bradycardia and atrial fibrillation with rapid ventricular response, failed medical therapy. POSTPROCEDURE DIAGNOSES: Sick sinus syndrome, symptomatic bradycardia and atrial fibrillation with rapid ventricular response, failed medical therapy. PROCEDURES PERFORMED 1. Dual-chamber pacemaker placement. 2. Moderate sedation. 3. Moderate conscious sedation was provided under my direct supervision by a sedation-trained nurse. 4. Sedation approximate time 30 minutes with Versed and Fentanyl. There were no complications. See sedation report for details. COMPLICATIONS: None. ESTIMATED BLOOD LOSS: 5 mL. DESCRIPTION OF PROCEDURE: After informed consent was obtained, patient was brought to the electrophysiology laboratory in a fasting, nonsedated state. Area over her chest was prepped and draped in the usual sterile fashion. Moderate sedation and prophylactic antibiotic were given. A venogram on the left side demonstrated occluded axillary vein, so we performed a venogram on the right side demonstrating patent axillary vein. Lidocaine 1% was used as local anesthetic and a 3 cm skin incision was made in the right subclavicular area. Electrocautery, sharp and blunt dissection were used to reach the muscular fascia and a pocket was created for eventual implantation of the device. Vascular access was obtained times 2 in the right axillary using the modified Seldinger technique under fluoroscopic guidance. Two 6-[place] sheaths were placed. The ventricular lead advanced to the RV apex. R*wave 6, pacing at 0.5, impedance 900. Atrial lead to the right appendage. P-wave 4.4, pacing at 0.5. Impedance 579. The sheaths were removed from the body. Leads were secured to the fascia using 0 silk. Pocket was irrigated with antibiotic solution using a pulse sales service technician. Hemostasis was meticulous. Leads were connected to the device and the entire pacemaker system placed in the pocket. The incision was closed using Vicryl and Dermabond. The patient tolerated the procedure well. Procedure was deemed complete. SUMMARY OF HARDWARE IMPLANTED 1. The new pacemaker is [employer]. 2. The atrial lead is [employer], [id number], [id number]. 3. The ventricular lead is [employer], [id number], [id number]. IMPRESSION: Successful dual-chamber pacemaker implant via right axillary vein. PLAN 1. Routine postop monitoring in telemetry bed. 2. Chest x-ray. 3. Followup in 2 weeks. Job#: [id number] JORGE A REESE
[2017-10-07] MEDS: SIMETHICONE 80 MG CHEW PEG SCH (20:38)
[2017-10-07] MEDS: LOSARTAN POTASSIUM 25 MG TAB PO SCH (20:38)
[2017-10-07] MEDS: BISACODYL 5 MG TAB EC PO SCH (20:39)
[2017-10-07] MEDS: SIMVASTATIN 20 MG TAB PO SCH (20:39)
== END 2017-10-07 21:00 | disposition home or self-care (01) | DRG 242 ==
LOC: ER 11:48 → ERHOLD 15:34 → IMCU 20:11
PROC: 0JH606Z Insertion of Pacemaker, Dual Chamber into Chest Subcutaneous Tissue and Fascia, Open Approach (ICD-10-PCS; principal; 2017-10-06)
PROC: 02HK3JZ Insertion of Pacemaker Lead into Right Ventricle, Percutaneous Approach (ICD-10-PCS; 2017-10-06)
PROC: 02H63JZ Insertion of Pacemaker Lead into Right Atrium, Percutaneous Approach (ICD-10-PCS; 2017-10-06)
DX: I49.5 Sick sinus syndrome (principal); N18.6 End stage renal disease; I13.0 Hypertensive heart and chronic kidney disease with heart failure and stage 1 through stage 4 chronic kidney disease, or unspecified chronic kidney disease; I50.30 Unspecified diastolic (congestive) heart failure; Z68.41 Body mass index [BMI] 40.0-44.9, adult; N25.81 Secondary hyperparathyroidism of renal origin; I48.91 Unspecified atrial fibrillation; E11.22 Type 2 diabetes mellitus with diabetic chronic kidney disease; Z99.2 Dependence on renal dialysis; Z79.4 Long term (current) use of insulin; E66.9 Obesity, unspecified; D63.1 Anemia in chronic kidney disease; G47.33 Obstructive sleep apnea (adult) (pediatric); H54.7 Unspecified visual loss; E11.319 Type 2 diabetes mellitus with unspecified diabetic retinopathy without macular edema; M10.9 Gout, unspecified
CPT/HCPCS: 36005; 36415; 71045; 74018; 77001; 80053; 80061; 81001; 82550; 82553; 82948; 83735; 83880; 84100; 84443; 84484; 85025; 85610; 85730; 93005; 93306; 96372; 96374; 99284; J2001; J2250; J3370; J7030; J7040; J7060